=== PATIENT | male | born 1970 | race Caucasian/White ===

== ENCOUNTER → 2021-01-31 13:53 | Outpatient (CLI) | payer BC | END | disposition home or self-care (01) | LOC: D.LABREF 13:53 | PROVIDERS: ATTEND Orthopaedic Surgery | DX: M17.11 Unilateral primary osteoarthritis, right knee (principal) ==

== ENCOUNTER 2021-03-20 11:17 | Observation (INO) | payer BC, OTHER ==
[2021-03-13 09:13] LABS: BASOPHILS 1.1 % (0-2); EOSINOPHILS 0.5 % (0-7); HEMATOCRIT 47.9 % (42.0-54.0); HEMOGLOBIN 16.1 g/dL (13.5-17.5); LYMPHOCYTES 21.1 % (15-50); MCH 30.8 pg (26.0-34.0); MCHC 33.7 g/dL (31.0-37.0); MCV 91.6 fL (80.0-100.0); MEAN PLATELET VOLUME 8.8 fL (7.4-10.4); MONOCYTES 7.3 % (2-11); PLATELET COUNT 252 10x3/uL (130-400); RBC 5.23 10x6/uL (4.20-6.10); RDW 14.5 % (11.5-14.5)
[2021-03-13 09:22] LABS: APTT 31.2 SECONDS (22.8-39.4); INR 1.03 (0.85-1.17); PROTIME 12.5 SECONDS (11.6-15.0)
[2021-03-13 09:23] LABS: CALC OSMOLALITY 277 mosm/kg (275-300); CALCIUM 9.2 mg/dL (8.5-10.1); CARBON DIOXIDE 26.7 mmol/L (21.0-32.0); CHLORIDE - SERUM 101 mmol/L (98-107); CREATININE - SERUM 0.9 mg/dL (0.6-1.3); GLUCOSE 120 mg/dL (74-106); POTASSIUM - SERUM 3.6 mmol/L (3.5-5.1); SODIUM 138 mmol/L (136-145); UREA NITROGEN 15 mg/dL (7-18); eGFR NON AFRICAN AMERICAN > 90 mL/min (90-120)
[2021-03-13 09:38] LABS: BILIRUBIN NEGATIVE (NEGATIVE); KETONE NEGATIVE mg/dL (< 1+); NITRITE NEGATIVE (NEGATIVE); UROBILINOGEN NORMAL mg/dL (< 2)
[~2021-03-20] VITALS: Ht 177.8 cm; Wt 124.3 kg
[2021-03-20 07:06] VITALS: BP 152/90; BMI 39.3
--- NOTE | 2021-03-20 10:52 | NUR ---
DR. MORENO IS AT BEDSIDE CHECKING ON PT. PT VOICED HE IS HAVING "SMALL AMOUT OF PAIN ON TOP OF RIGHT KNEE". 4/[address] MORENO GAVE V.O TO GIVE 30MG KETORALAC IV NOW. V.O READ BACK CORRECT
[~2021-03-20 11:17] MED LIST: BUSPAR 15 MG TA15 MG PO; CARDIZEM CD240 MG PO; CYCLOBENZAPRINE10 MG PO; HYDROCODON-ACE1 EA10 PO; TENORMIN50 MG PO; VOLTAREN75 MG PO
[2021-03-20 19:48] VITALS: BP 111/67; Ht 177.8 cm; Wt 124.3 kg
[2021-03-20 20:08] VITALS: BP 111/61
[2021-03-21 04:43] VITALS: BP 123/83
[2021-03-21 06:22] LABS: BASOPHILS 0.1 % (0-2); EOSINOPHILS 0 % (0-7); HEMATOCRIT 39.3 % (42.0-54.0); HEMOGLOBIN 12.7 g/dL (13.5-17.5); LYMPHOCYTES 5.7 % (15-50); MCHC 32.2 g/dL (31.0-37.0); MCV 93.2 fL (80.0-100.0); MEAN PLATELET VOLUME 8.7 fL (7.4-10.4); MONOCYTES 7.2 % (2-11); PLATELET COUNT 225 10x3/uL (130-400); RBC 4.22 10x6/uL (4.20-6.10); WBC 18.5 10x3/uL (4.8-10.8)
[2021-03-21 06:43] LABS: ALKALINE PHOSPHATASE 90 U/L (30-120); ALT (SGPT) 42 U/L (10-68); BILIRUBIN - TOTAL 0.31 mg/dL (0.2-1.3); CALC OSMOLALITY 282 mosm/kg (275-300); CARBON DIOXIDE 25.4 mmol/L (21.0-32.0); CHLORIDE - SERUM 104 mmol/L (98-107); GLUCOSE 153 mg/dL (74-106); POTASSIUM - SERUM 4.1 mmol/L (3.5-5.1); PROTEIN - SERUM 5.8 g/dL (6.4-8.2); SODIUM 140 mmol/L (136-145); UREA NITROGEN 15 mg/dL (7-18); eGFR NON AFRICAN AMERICAN 85 mL/min (90-120)
--- NOTE | 2021-03-21 07:59 | NUR ---
ALERT AND ORIENTED. ASSESSMENT COMPLETE. DENIES NEEDS. BED LOW. CALL PRUITT AND PERSONAL ITEMS IN REACH. WILL CONTINUE TO MONITOR.
[2021-03-21] MEDS ORDERED: ELIQUIS2.5 MG PO (08:25)
[2021-03-21] MEDS ORDERED: VISTARIL50 MG PO (08:25)
[2021-03-21] MEDS ORDERED: PERCOCET 10-321 EAC1 PO (08:25)
--- NOTE | 2021-03-21 08:28 | OP ---
PATIENT NAME: BULMARO VELAZQUEZ MEDICAL RECORD: [id number] :74 LOCATION:[id number] ADMISSION DATE:03/20/21 SURGEON: JUAN CARLOS HUMPHRIES DO DATE OF OPERATION: 03/20/2021 PROCEDURE PERFORMED: Right total knee arthroplasty. PREOPERATIVE DIAGNOSIS: Right knee osteoarthritis. POSTOPERATIVE DIAGNOSIS: Right knee osteoarthritis. INDICATIONS: Mr. Toby falcon by Luke is a 50-year-old male who is well known to me, who has had right knee pain for quite some time. He had x-rays in my office and injections and he had severe osteoarthritis in the knee. He tried all manner nonoperative treatment due to his young age and he has had large spurs and osteophytes and wanted something done surgically. I informed him the knee replacement is the best option, that he would be at risk for revision, infection, bleeding, damage to nerves or vessels, need for further surgery, continued pain, fracture, loss of motion of the knee and blood clots and even and he signed a consent. SURGEON: Juan Carlos Humphries DO DESCRIPTION OF PROCEDURE: The patient was taken to the operative suite after getting a block and spinal by anesthesia and then sedated and LMA was placed. He was given 2 grams of Ancef, 80 mg gentamicin, and a gram of TXA. The right lower extremity was prepped and draped in a sterile fashion. Timeout was performed. Everyone was in agreement with correct side, site, patient and procedure. I then began by marking out the incision on the anterior knee and then covered in Ioban. I then made an incision through the skin with a 10 blade scalpel and made careful dissection down to the capsule using a fresh 10 blade, did a medial parapatellar approach, coagulating any vessels with Aquamantys as I went. I then everted the patella, removed part of the fat pad and milled it down and then drilled for a 32, 3-peg patella. I then flexed the knee up, removed the ACL and drilled into the femur and then cut the distal femur through the guide while cement was mixing for the patella. I then removed the femur without cut and brought the knee in extension, irrigated out the patella, put the cement on the patella and on the implant, squeezed it into place. I then removed the excess cement from it and left the squeezer on. I then exposed the tibia and used an extramedullary guide to cut the proximal tibia. I then cut through the guide and then removed the tibial plateau that I cut and brought the knee in extension. The menisci were removed. At that time, the cement had dried on the patella, I removed the squeezer. I then removed the menisci and coagulating vessels bleeding into the Aquamantys. I then flexed the knee, sized the femur to be an 11, used a 4-in-1 cutting block after using the evelio wing cut through the 4-in-1 cutting block for the distal femur cuts and chamfer cuts and anterior and posterior cuts. I then exposed the tibia, sized it to be an F. I then after having rasped down the lateral plateau a little bit, put on the F and pinned it into place and then trialed the 11 femur with a 10 and 11 poly, 11 fit very well. We then drilled lug holes for the femur and the holes for the TM tibia. I then removed the trials, irrigated and impacted on the tibial implant, then the femoral implant and put the 11 poly and secured it into place. I then ranged the knee as very stable in flexion, mid flexion and extension with varus and valgus stress. I then put in 10% povidone and iodine and 500 mL of normal saline solution and used the joint cocktail. There did not have morphine in it. OPERATIVE REPORT [id number] BULMARO VELAZQUEZ I then injected cut around the knee. I then irrigated out with a liter of normal saline, put in Gwen and vancomycin and tobramycin powder and then closed the capsule with #1 Vicryl in njbvva-ox-lcyir fashion and Gil Oliveira, certified surgical public health training assistant did a running Stratafix over that on the capsule and he closed the skin with 2-0 Vicryl in an inverted interrupted fashion, placed on a ZipLine, Adaptic, 4 x 4, ABD, Webril, Navarro wrap and MARE hose. He was then awakened and taken to recovery in stable condition. Blood loss was approximately 200 mL. He was given a gram of TXA, taken to recovery in stable condition. COMPLICATIONS: None. TRANSINT:[id number] Voice Confirmation ID: [id number] DOCUMENT ID: [id number] JUAN CARLOS HUMPHRIES DO at 0828 CC: [id number] DICTATION DATE: 03/20/21 1144 CONTAINER COORDINATOR: 03/20/21 1324 ADM IN [facility] [address] [facility], [facility]
[2021-03-21 08:40] VITALS: BP 146/83
--- NOTE | 2021-03-21 10:32 | MORECARE ---
CASE MANAGEMENT DISCHARGE SUMMARY PATIENT: BULMARO VELAZQUEZ UNIT: [id number] ADM DATE: 03/20/21 AGE: 50 : 74 SEX: M ROOM/BED: D.2236 AUTHOR: DELIA,DOC PHYSICIAN: REFERRING PHYSICIAN: ADRIENNE HUMPHRIES DO DATE OF SERVICE: 03/21/21 Case Management Discharge Planning Summary COMMENTS ENTERED DATE: 03/21/21 10:27 CT COMMENT TYPE: Discharge Planning REVIEWER: Claudia Polanco CM met with patient at bedside after obtaining verbal consent. CM discussed availability / needs of home health, REHAB and medical equipment. Patient has his medical equipment and would like physical therapy with [facility] in [place]. Appointment is made for 10 am tomorrow 03/22/21. CM to follow and assist as needed. DCP REVIEW SUMMARY ANTICIPATED D/C DATE: EXPECTED LOS : CASE STATUS: DCP Initiated INITIAL REVIEW: 03/20/2021 INITIAL REVIEWER: Claudia Polanco FINAL DISCHARGE DISPOSITION: : FINAL REVIEWER: FINAL REVIEW DATE: DCP Focus Questions & Answers QUESTION: ANSWER : PATIENT: BULMARO VELAZQUEZ ENCOUNTER: [id number] MEDICAL RECORD#: [id number] ADMISSION DATE: 03/20/2021 DISCHARGE DATE: ATTENDING MD: ADRIENNE GILLILAND : AGE: 50 MARITAL STATUS: M DC PLAN ID: [id number] FACILITY: [facility] PRINTED ON: 03/21/21 10:32 CT All edits/amendments must be made on the electronic document DICTATION DATE: 03/21/21 103 QUAD STAYER: LIZABETH 03/21/21 1032 RPT#: [id number] DC DATE: STATUS: ADM IN [facility] [address] [place] [address] END OF REPORT
--- NOTE | 2021-03-21 11:28 | NUR ---
DC EDUCATION PROVIDED BOTH WRITTEN AND VERBAL. VERBALIZED UNDERSTANDING. DENIES FURTHER QUESTIONS. IV REMOVED FROM LEFT HAND WITH TIP INTACT. RX FOR PRN PAIN MEDICATION PROVIDED TO PATIENT AND COPY SIGNED. DRSG CHANGED TO RIGHT KNEE PER ORDER. X 5 DRSGS PROVIDED TO PATIENT WITH EDUCATION. DENIES QUESTIONS. PATIENT WAITING RIDE.
--- NOTE | 2021-03-21 11:45 | NUR ---
PATIENT DC HOME WITH FAMILY WITH ALL BELONGINGS.
--- NOTE | 2021-03-21 11:58 | MORECARE ---
CASE MANAGEMENT DISCHARGE SUMMARY PATIENT: BULMARO VELAZQUEZ UNIT: [id number] ADM DATE: 03/20/21 AGE: 50 : 74 SEX: M ROOM/BED: D.2236 AUTHOR: DELIA,DOC PHYSICIAN: REFERRING PHYSICIAN: ADRIENNE HUMPHRIES DO DATE OF SERVICE: 03/21/21 Case Management Discharge Planning Summary COMMENTS ENTERED DATE: 03/21/21 10:27 CT COMMENT TYPE: Discharge Planning REVIEWER: Claudia Polanco CM met with patient at bedside after obtaining verbal consent. CM discussed availability / needs of home health, REHAB and medical equipment. Patient has his medical equipment and would like physical therapy with [facility] in [place]. Appointment is made for 10 am tomorrow 03/22/21. CM to follow and assist as needed. DCP REVIEW SUMMARY ANTICIPATED D/C DATE: EXPECTED LOS : CASE STATUS: DCP Initiated INITIAL REVIEW: 03/20/2021 INITIAL REVIEWER: Claudia Polanco FINAL DISCHARGE DISPOSITION: : FINAL REVIEWER: FINAL REVIEW DATE: DCP Focus Questions & Answers QUESTION: ANSWER : PATIENT: BULMARO VELAZQUEZ ENCOUNTER: [id number] MEDICAL RECORD#: [id number] ADMISSION DATE: 03/20/2021 DISCHARGE DATE: 03/21/2021 ATTENDING MD: ADRIENNE GILLILAND : AGE: 50 MARITAL STATUS: M DC PLAN ID: [id number] FACILITY: [facility] PRINTED ON: 03/21/21 11:57 CT All edits/amendments must be made on the electronic document DICTATION DATE: 03/21/21 1157 SUPERVISOR ASSEMBLY: LIZABETH 03/21/21 1157 RPT#: [id number] DC DATE:03/21/21 STATUS: DIS IN [facility] [address] [place] [address] END OF REPORT
== END 2021-03-21 11:49 | disposition home or self-care (01) ==
LOC: D.OPS 11:17 → D.MS 11:20 → D.OPS 12:11 → D.MS 12:13 → OBSVTIME 12:14 → D.MS 03-21 11:49
PROVIDERS: Family Medicine; ADMIT Orthopaedic Surgery; ATTEND Orthopaedic Surgery
DX: M17.11 Unilateral primary osteoarthritis, right knee (principal); K21.9 Gastro-esophageal reflux disease without esophagitis; G47.33 Obstructive sleep apnea (adult) (pediatric); G89.29 Other chronic pain; F41.9 Anxiety disorder, unspecified